=== PATIENT | female | born 1950 | race Caucasian/White ===

== ENCOUNTER 2018-12-23 07:03 | Inpatient (IN) ==
--- NOTE | 2018-12-16 10:58 | EKG Report ---
Test Performed on : 12/16/2018 10:43:38 AM Test Reason : PAT Blood Pressure : / mmHG Vent. Rate : 063 BPM Atrial Rate : 063 BPM P-R Int : 160 ms QRS Dur : 074 ms QT Int : 380 ms P-R-T Axes : 059 024 038 degrees QTc Int : 388 ms Normal sinus rhythm. Normal ECG When compared with ECG of 08-OCT-2018 12:42, premature ventricular complexes. are no longer present QT has shortened Confirmed by Lois LEON, Michael Cleaning ([id number]) on 12/16/2018 5:58:51 PM
[2018-12-16 12:09] LABS: BASO# 0.01 X1000 (0.0-0.2); BASO% 0.2 % (0.0-0.8); EOS# 0.08 X1000 (0.0-0.7); EOS% 1.6 % (0.0-10.0); HEMATOCRIT 41.6 % (37.0-47.0); HEMOGLOBIN 13.3 g/dL (12.0-16.0); LYMPH# 1.02 X1000 (1.2-3.4); LYMPH% 20.4 % (20.5-51.1); MCH 30.4 PG (27-31); MCV 95.2 FL (81-99); MONO# 0.33 X1000 (0.11-0.59); MONO% 6.6 % (1.7-9.3); MPV 10.8 FL (7.4-10.4); NEUT# 3.55 X1000 (1.4-6.5); NEUT% 71.2 % (42.2-75.2); PLT 209 X1000 (130-400); RBC 4.37 XMIL (4.2-5.4); RDW 12.8 % (11.5-14.5); WBC 4.99 X1000 (4.8-10.8)
[2018-12-16 12:51] LABS: AGAP 10; BUN 21 mg/dL (8-22); CALCIUM 10.1 mg/dL (8.8-10.2); CHLORIDE 102 mmol/L (98-107); COSMO 282; CREATININE 0.9 mg/dL (0.5-0.9); ESTIMATED GFR > 60; GLUCOSE 89 mg/dL (70-104); POTASSIUM 4.7 mmol/L (3.5-5.1); SODIUM 140 mmol/L (136-145); TCO2 28 mmol/L (25-35)
[2018-12-23] MEDS ORDERED: QUELICIN (DOSE) ONE (07:38)
[2018-12-23] MEDS ORDERED: XYLOCAINE-MPF 2% ONE (07:38)
[2018-12-23] MEDS ORDERED: DIPRIVAN 1% ONE (07:38)
[2018-12-23] MEDS ORDERED: REGLAN ONE (07:43)
[2018-12-23] MEDS ORDERED: PEPCID ONE (07:43)
[2018-12-23] MEDS ORDERED: ENTEREG ONE (07:43)
[2018-12-23] MEDS ORDERED: INVANZ 1 GM/NS 1 GM/50 ML IVPB ONE (07:44)
[2018-12-23] MEDS ORDERED: LR 1,000 ML ONE (07:44)
[2018-12-23] MEDS ORDERED: ZOFRAN ONE ×2 (07:58→09:19)
[2018-12-23] MEDS ORDERED: OFIRMEV 1000 MG/ISOTONIC SOLN 1,000 MG/100 ML BOTTLE ONE (08:59)
[2018-12-23] MEDS ORDERED: DILAUDID ONE ×2 (09:05→10:53)
[2018-12-23] MEDS ORDERED: EPHEDRINE ONE (09:14)
[2018-12-23] MEDS ORDERED: TORADOL ONE (09:19)
[2018-12-23] MEDS ORDERED: ZEMURON ONE (09:21)
[2018-12-23] MEDS ORDERED: DECADRON ONE (09:21)
[2018-12-23 09:33] LABS: URINE SOURCE CATH
[2018-12-23 09:39] LABS: BILIRUBIN URINE NEGATIVE (NEGATIVE); BLOOD URINE NEGATIVE (NEGATIVE); COLOR YELLOW; GLUCOSE URINE NEGATIVE (NEGATIVE); KETONE URINE TRACE mg/dL (NEGATIVE); LEUKOCYTES URINE NEGATIVE (NEGATIVE); NITRITE URINE NEGATIVE (NEGATIVE); PH URINE 6.5; PROTEIN URINE TRACE mg/dL (NEGATIVE); SP GRAVITY URINE 1.022; TURBIDITY URINE CLEAR (CLEAR); UROBILINOGEN URINE NORMAL (NORMAL)
[2018-12-23 09:40] LABS: UR EPITHELIAL CELLS <10 /HPF (<10); URINE BACTERIA NEGATIVE /HPF; URINE RBC TNTC /HPF (<10); URINE WBC <10 /HPF (<10)
[2018-12-23] MEDS ORDERED: NEOSTIGMINE ONE (09:40)
[2018-12-23] MEDS ORDERED: ROBINUL ONE (09:40)
[2018-12-23] MEDS ORDERED: NS 1,000 ML ONE (11:01)
[2018-12-23] MEDS ORDERED: ZOFRAN IV PRN (11:21)
--- NOTE | 2018-12-23 11:30 | OPERATIVE NOTE ---
PROCEDURE DATE: 12/23/2018 PROCEDURE: Closure of colostomy. SURGEON: Dr. Ildefonso Ya. ELECTRICIAN HELPER POWERHOUSE: Liam Faust RN. PREOPERATIVE DIAGNOSIS: History of perforated colon with colostomy. POSTOPERATIVE DIAGNOSIS: History of perforated colon with colostomy. INDICATIONS: A 68-year-old with left lower quadrant end colostomy that was constructed months ago due to a perforated diverticulum. Now, she wants it reversed. DESCRIPTION OF PROCEDURE: After satisfactory general endotracheal anesthesia was achieved, the patient was placed in Alf stirrups. The stoma was closed with a 0 Prolene purse-string stitch. The abdomen was then prepped and draped in a sterile fashion. We covered the stoma. We then made a midline incision through the old scar. We carried our incision through the subcutaneous tissue through the midline fascia, entering the abdominal cavity to the extent of the skin incision. Upon entering the abdominal cavity, we looked in the pelvis and identified the end of the Maddy's which was marked with a couple of stitches. We then were able to easily access the end colostomy inside the abdominal cavity we used a TA 60 blue cartridge to divide the colon just deep to the abdominal wall. We then incised the adhesions enough to allow the colon to swing down to the pelvis. Again, the rectum was long enough to do an end-to-end anastomosis inside the abdominal cavity by sewing it. We then obtained the Bookwalter retractor and placed the patient in Trendelenburg and then positioned our retractors so that the small bowel would be out of our way. We then cleaned off the proximal colon posteriorly on the sidewalls as well as the Maddy's stump and then used 3-0 silks in a Lembert fashion to approximate the bowel on the posterior aspect. We then amputated the staple lines on both sides. We then constructed an inside anastomoses using a 3-0 Polysorb running stitch posteriorly and changed to a Nidhi stitch anteriorly, and then our final layer was 3-0 silks in a Lembert fashion. This, thereby, completed an end-to-end 2-layered sewn anastomosis. We changed gloves at this point. There was no tension on the anastomosis. We irrigated out the pelvis. We then allowed the small bowel to return to its normal position. We closed the peritoneum with 2-0 chromic. We closed the fascia with a running #2 Prolene. We irrigated the subcutaneous tissue and closed the skin with vijaya. We covered the midline staple line and then exposed the stoma. I then incised the stoma at the mucocutaneous junction circumferentially. We then used the electrocautery to go into the subcutaneous tissue until we freed the stoma completely and removed it. We were then left with a hole in the fascia, which we closed with interrupted 0 Surgilon [id number] stitches. We irrigated out subcutaneous tissue. We placed some 3-0 Polysorb in the subcutaneous tissue. We then closed the skin in a transverse fashion with vijaya. Sterile dressings were applied to both staple lines, and she tolerated it well. She was sent to the recovery room in satisfactory condition. cc: Ildefonso Ya MD
[2018-12-23] MEDS: OFIRMEV 1000 MG/ISOTONIC SOLN 1,000 MG/100 ML BOTTLE IV SCH ×3 (12:21→22:44)
[2018-12-23] MEDS: NS 1,000 ML IV SCH ×3 (12:22→22:43)
[2018-12-23] MEDS: LOVENOX SUBQ SCH (12:22)
--- NOTE | 2018-12-23 15:12 | GENERAL SURGERY PROGRESS NOTE ---
DATE: 12/23/2018 It is 3 o'clock. Ms Maya was sleeping but she was easily awakened. She has no complaints. The blood pressure is about 100 systolic, heart rate is 80. I think she is progressing satisfactorily. She has no complaints. cc: Ildefonso Ya MD
[2018-12-23] MEDS: DILAUDID IV PRN ×2 (18:25→22:44)
[2018-12-23] MEDS: PERIDEX MT SCH (22:44)
[2018-12-24] MEDS: DILAUDID IV PRN ×3 (03:11→12:46)
[2018-12-24 05:47] LABS: BASO# 0.02 X1000 (0.0-0.2); BASO% 0.4 % (0.0-0.8); EOS# 0.07 X1000 (0.0-0.7); EOS% 1.2 % (0.0-10.0); HEMATOCRIT 35.9 % (37.0-47.0); HEMOGLOBIN 11.4 g/dL (12.0-16.0); LYMPH# 0.65 X1000 (1.2-3.4); LYMPH% 11.5 % (20.5-51.1); MCH 30.6 PG (27-31); MCHC 31.8 g/dL (33-37); MCV 96.2 FL (81-99); MONO% 7.1 % (1.7-9.3); MPV 10.9 FL (7.4-10.4); NEUT# 4.53 X1000 (1.4-6.5); NEUT% 79.8 % (42.2-75.2); PLT 170 X1000 (130-400); RBC 3.73 XMIL (4.2-5.4); RDW 12.7 % (11.5-14.5); WBC 5.67 X1000 (4.8-10.8)
[2018-12-24] MEDS: OFIRMEV 1000 MG/ISOTONIC SOLN 1,000 MG/100 ML BOTTLE IV SCH (06:10)
[2018-12-24 06:22] LABS: AGAP 10; BUN 15 mg/dL (8-22); CHLORIDE 108 mmol/L (98-107); COSMO 283; CREATININE 0.8 mg/dL (0.5-0.9); ESTIMATED GFR > 60; GLUCOSE 76 mg/dL (70-104); SODIUM 142 mmol/L (136-145); TCO2 24 mmol/L (25-35)
[2018-12-24] MEDS: PRILOSEC PO SCH (06:27)
[2018-12-24] MEDS: EFFEXOR XR PO SCH (09:40)
[2018-12-24] MEDS: ENTEREG PO SCH ×2 (09:40→20:53)
[2018-12-24] MEDS: PERIDEX MT SCH ×2 (09:40→20:53)
[2018-12-24] MEDS: NS 1,000 ML IV SCH ×2 (10:54→14:53)
[2018-12-24] MEDS: LOVENOX SUBQ SCH (14:51)
[2018-12-24] MEDS: NORCO-10 PO PRN (15:00)
--- NOTE | 2018-12-24 15:23 | GENERAL SURGERY PROGRESS NOTE ---
DATE: 12/24/2018 TIME SEEN: 2:40 p.m. SUBJECTIVE: Ms. Maya is sitting up. She complains of a headache. Has had a little nausea. OBJECTIVE: Abdomen: Has some left lower quadrant pain that is expected. Vital signs: She is afebrile. Heart rate 70, blood pressure 116/57. Her urine output has been satisfactory. PLAN: The plan will be to give her some clear liquids and cut her IV rate down. We will remove her De Paz in the morning. cc: Ildefonso Ya MD
[2018-12-25] MEDS: NS 1,000 ML IV SCH (00:51)
[2018-12-25] MEDS: NORCO-10 PO PRN ×4 (05:29→22:40)
[2018-12-25] MEDS: PRILOSEC PO SCH ×2 (05:30→10:45)
[2018-12-25] MEDS: ENTEREG PO SCH ×2 (08:42→22:40)
[2018-12-25] MEDS: EFFEXOR XR PO SCH (08:42)
[2018-12-25] MEDS: PERIDEX MT SCH ×2 (08:43→22:40)
[2018-12-25] MEDS ORDERED: NS 1,000 ML IV SCH (08:45)
--- NOTE | 2018-12-25 09:32 | GENERAL SURGERY PROGRESS NOTE ---
DATE: 12/25/2018 Ms. Maya is doing generally well. She is sipping on liquids satisfactorily. She is afebrile. Hemodynamics were good. The plan today is to take her De Paz out, advance her to full liquids. We cut her IV rate to KVO. cc: Ildefonso Ya MD
[2018-12-25] MEDS: LOVENOX SUBQ SCH (11:29)
[2018-12-26] MEDS: PRILOSEC PO SCH (09:29)
[2018-12-26] MEDS: ENTEREG PO SCH ×2 (09:30→22:25)
[2018-12-26] MEDS: PERIDEX MT SCH ×2 (09:30→22:25)
[2018-12-26] MEDS: EFFEXOR XR PO SCH (09:30)
[2018-12-26] MEDS: LOVENOX SUBQ SCH (11:01)
[2018-12-26] MEDS: NORCO-10 PO PRN ×3 (12:58→22:26)
--- NOTE | 2018-12-26 23:21 | GENERAL SURGERY PROGRESS NOTE ---
DATE: 12/26/2018 TIME: 1:25 p.m. SUBJECTIVE: Ms. Maya is going generally well. She is ambulating. She tolerating her liquids. Her bowels have moved some. She still has some nausea; she attributes it to the Lovenox. OBJECTIVE: She is afebrile, heart rate is 67, blood pressure 143/59. PLAN: The plan is to advance her to solid food, and we will stop her Lovenox and use JUVENAL hose. She is to continue ambulating, and she should be able to be discharged the morning of the by Dr. Dumont. She will return to see me on Saturday, the , for staple removal. cc: Ildefonso Ya MD
[2018-12-27 07:55] VITALS: BP 131/55
[2018-12-27] MEDS: NORCO-10 PO PRN (08:57)
[2018-12-27] MEDS: EFFEXOR XR PO SCH (09:36)
[2018-12-27] MEDS: PERIDEX MT SCH (09:36)
[2018-12-27] MEDS: ENTEREG PO SCH (09:36)
--- NOTE | 2018-12-27 16:56 | GENERAL SURGERY PROGRESS NOTE ---
DATE: 12/27/2018 SUBJECTIVE: She is doing well. Bowels are functioning. Tolerating a diet. Incision is intact. Pain is controlled with [place]. No fever or tachycardia. LABORATORY: No new labs this morning. ASSESSMENT AND PLAN: 68-year-old female status post colostomy reversal. She is doing well. She wanted to go home today. She can see Dr. Ya this week. I have given her postop instructions in written and verbal format. cc: MD Ildefonso Sal MD
--- NOTE | 2018-12-30 05:30 | DISCHARGE SUMMARY ---
ADMISSION DATE: 12/23/2018 DISCHARGE DATE: 12/27/2018 HISTORY: Ms. Maya has a history of sigmoid resection for perforated diverticulum in [facility] 3 months ago. She now has returned home and presents for closure of her colostomy. She was admitted on the and discharged on 12/27. PRIMARY DISCHARGE DIAGNOSIS: History of diverticular perforation with construction of end colostomy. PRIMARY PROCEDURE AT THIS HOSPITALIZATION.: Closure of her colostomy. HOSPITAL COURSE: Following her outpatient prep, she was admitted on the and went to the operating room, where we took her colostomy down and did anastomosis to her distal sigmoid. Postoperatively, she did generally well. We were able to start her on liquids on the first postoperative day and advance them subsequently. By 12/27, she was ambulatory. She was taking p.o. intake. Her bowels had moved. Her wound was fine. It is felt she could be discharged home. She will return to the office on the for staple removal. cc: Ildefonso Ya MD
== END 2018-12-27 12:31 | disposition home or self-care (01) | DRG 346 ==
LOC: SURHOLD 07:03 → 4N 10:37
PROVIDERS: ADMIT Surgery; ATTEND Surgery
CPT/HCPCS: 80048; 81001; 85025; 88304; 93005; 93010; 94761; 94799; A9270; J0131; J0330; J1100; J1170; J1335; J1650; J1885; J2405; J7030; J7120